=== PATIENT | male | born 1950 | race Caucasian/White ===

== ENCOUNTER 2025-01-22 08:08 | Day surgery (SDC) | payer MEDICARE, OTHER ==
--- NOTE | 2025-01-21 14:44 | HP ---
HISTORY OF PRESENT ILLNESS: Patient is a 74-year-old. Patient has had some rectal bleeding in the past. He had some anemia and was on Plavix. History of colonoscopy and internal hemorrhoid banding not quite 2 years ago. PAST MEDICAL HISTORY: Reflux, anxiety, hypertension, heart disease, COPD, BPH, depression, hyperlipidemia, arthritis. PAST SURGICAL HISTORY: He has had cardiac cath, coronary stents in the past, hemorrhoid surgery in the past, vasectomy in the past, laminectomy in the past, spinal fusion, rotator cuff surgery in the past. He has had some cataract lens surgeries in the past, as well as back surgery. FAMILY HISTORY: Heart disease and ovarian cancer. SOCIAL HISTORY: Former smoker. No alcohol abuse. MEDICATIONS: Vitamin D3, folic acid, vitamin B12, ivermectin, diazepam, Percocet, tamsulosin, rosuvastatin for some hyperlipidemia, as well as Lasix, Ventolin HFA, dutasteride, pantoprazole, Plavix, isosorbide mononitrate. ALLERGIES: No known drug allergies. REVIEW OF SYSTEMS: Twelve systems reviewed. Pertinent for all chronic medical conditions as noted above. PHYSICAL EXAMINATION: GENERAL: Height 5 foot 7 inches. BMI 25.37. No acute distress. HEENT: Sclerae nonicteric. Extraocular movements intact. NECK: No JVD. CHEST: Equal excursion, nonlabored breathing. CARDIOVASCULAR: Regular rate and rhythm. ABDOMEN: Soft, nontender. EXTREMITIES: Without cyanosis or edema. NEUROLOGIC: Alert and oriented, moving all extremities symmetrically. PSYCHIATRIC: Appropriate mood and affect. SKIN: Dry. RECTAL: Deferred until time of endoscopic exam. IMPRESSION: Rectal bleeding. Patient is concerned about some prolapsing internal hemorrhoids as well. Recommend colonoscopy and possible internal hemorrhoid banding pending operative findings. Risks explained in detail including but not limited to bleeding or infection, risk of bowel injury or perforation possibly requiring need for other procedure, risk of incomplete exam possibly requiring barium swallow or barium swallow, risk of missed or nondiagnosis. Recommend colonoscopy with possible internal hemorrhoid banding with general risk of bleeding or infection, risk of bowel injury or perforation possibly requiring need for other procedure, risk of missed or nondiagnosis or incomplete exam possibly requiring barium enema, general risk of anesthesia and sedation, risks of bowel prep but not limited to. Risk of recurrent bleeding, risk of progression of hemorrhoid disease possibly requiring other procedures as a banding, excisional therapy or other treatments, risk of infection, risk of aches, pains or cramping or pressure sensation, usually transient but sometimes longer term; risk of sphincter spasm or irregularity; remote risk of pelvic sepsis. Otherwise, I recommend avoiding straining, avoid constipation, titrate high-fiber diet or FiberCon to dissolve bulky stools. Hold thinners preop, otherwise, continue medications for BPH, anxiety, COPD, hypertension, hyperlipidemia and heart disease. Otherwise, he understands all of the above but not limited to. We will proceed with outpatient MAC anesthesia colonoscopy with possible internal hemorrhoid banding if indicated at the time.
[~2025-01-22 08:08] MED LIST: Lactated Ringers 1,000 ML IV ONE
[2025-01-22] MEDS: Lactated Ringers 1,000 ML IV SCH (08:11)
[2025-01-22 08:29] VITALS: RESP 18
[2025-01-22] MEDS ORDERED: propofoL IV ONE ×2 (10:27→11:59)
[2025-01-22 11:48] VITALS: BP 145/67; PULSE 53; TEMP 98.6; O2SAT 97
--- NOTE | 2025-01-23 11:01 | OP ---
SURGERY DATE/TIME: 01/22/2025 [id number] PREOPERATIVE DIAGNOSIS: History of some rectal bleeding. POSTOPERATIVE DIAGNOSES: 1) ASA class 3. 2) Withdrawal time on the colonoscopy 9 minutes. 3) Diverticulosis. 4) Polyps. 5) Grade 3 internal and external hemorrhoids. PROCEDURES: 1) Colonoscopy to cecum with hot biopsies of cecal polyp, ascending colon polyp, rectal polyp, as well as raised lesion sigmoid colon, all removed with hot biopsy forceps. 2) Internal hemorrhoid banding x3 columns. SURGEON: Tonny Eubanks MD ANESTHESIA: MAC. ESTIMATED BLOOD LOSS: Less than 25 to 50 mL. INDICATIONS: Above. Risks and benefits explained in detail. Consent was obtained. DESCRIPTION OF PROCEDURE AND FINDINGS: The patient was taken to the endoscopy room. MAC anesthesia induced. After official time-out and no disagreement with planned procedure, digital rectal exam revealed the internal and external hemorrhoids. Videocolonoscope was inserted and passed up through the tortuous sigmoid, descending, transverse, ascending colon. With external pressure, the scope was passed around to the cecum. Appendiceal orifice and valve well visualized. The prep overall was fair. A little bit of liquidy, semi-solid stool, just slightly limiting exam for small lesions. Scope was carefully withdrawn. Small polyps in the cecum, ascending colon, and rectum removed with the hot biopsy polypectomy. There was a small, early raised lesion versus early polyp in the sigmoid colon that was removed with hot biopsy forceps. Good hemostasis was noted. Patient did have moderate diverticulosis and had the grade 3 internal and external hemorrhoids. Scope was withdrawn. Hemorrhoid retractors were made available. Suction lime slaker was used to suck up the top edge of the left lateral hemorrhoid column with a good tuft of tissue with the band. This was repeated in the right posterior area. The right anterior position was a little more difficult. The suction was not working ideally, so the more standard hemorrhoid clamp and band were placed in this fashion. Patient had some ooze in trying to place the bands, appeared to be better at the end of the procedure. Expect some rectal bleeding over a few days. It generally clears over a couple of weeks. He does have some moderate external component. If he continues to have problems, could consider excisional therapy down the road, but he wanted to try the banding at this moment. Patient tolerated procedure well. There is no family to discuss any findings out in the waiting area.
== END 2025-01-22 12:00 | disposition home or self-care (01) ==
LOC: SDC 08:08
PROVIDERS: ATTEND Surgery
DX: Z87.19 Personal history of other diseases of the digestive system (principal); K57.30 Diverticulosis of large intestine without perforation or abscess without bleeding; K64.4 Residual hemorrhoidal skin tags; K64.8 Other hemorrhoids; D12.2 Benign neoplasm of ascending colon; D12.0 Benign neoplasm of cecum; D12.5 Benign neoplasm of sigmoid colon